=== PATIENT | male | born 1945 ===

== ENCOUNTER 2021-08-06 05:48 | Day surgery (SDC) | payer OTHER | END 2021-08-06 12:40 | disposition home or self-care (01) | LOC: AMB-ENDOS 05:48 | PROVIDERS: ATTEND Colon & Rectal Surgery | DX: K62.89 Other specified diseases of anus and rectum (principal); K64.8 Other hemorrhoids; Z20.822 Contact with and (suspected) exposure to COVID-19; Z12.11 Encounter for screening for malignant neoplasm of colon ==